=== PATIENT | female | born 1970 | race Caucasian/White ===

== ENCOUNTER 2017-05-30 09:59 | Emergency (ER) | payer MEDICAID ==
--- NOTE | ~2017-05-30 | ER ---
PATIENT'S NAME: JOY CR [facility] AGE: 47 Y [address] ROOM: [place] [address] LOCATION: [facility] ADMIT DATE: 05/30/2017 ER/Outpatient Report DISCHARGE DATE: 05/30/2017 FAMILY PHYSICIAN: Physician, Unknown ATTENDING PHYSICIAN: Francis Whitten TIME SEEN: 1010 hours. CHIEF COMPLAINT: Pruritic rash. HISTORY OF PRESENT ILLNESS: The patient is a 47-year-old female, states that she developed a rash started about 3 weeks ago, but has gotten worse the last few days. The patient describes her rash as quite pruritic especially at night. She has had no fever or chills. ALLERGIES: NONE. HOME MEDICATIONS: None. PAST MEDICAL HISTORY: No chronic diseases. SOCIAL HISTORY: Denies alcohol or tobacco use. REVIEW OF SYSTEMS: GENERAL: Health good. HEAD AND ENT: No recent sore throat. RESPIRATORY: Negative. CARDIOVASCULAR: Negative. SKIN: Includes pruritic rash mostly on her extremities; however, few on her trunk and left buttocks. PHYSICAL EXAMINATION: VITAL SIGNS: Blood pressure 138/63, temperature 98.8, respiratory rate 16, pulse 75, O2 saturations 95%. GENERAL APPEARANCE: Healthy appearing female. Alert and oriented. SKIN: Exam of her skin on the left ankle, there were isolated papules, some were slightly crusted. There was no drainage. She also had some on her trunk just laterally to her left breast. There were no open areas. PATIENT'S NAME: JOY CR [facility] AGE: 47 Y [address] ROOM: [place] [address] LOCATION: [facility] ADMIT DATE: 05/30/2017 ER/Outpatient Report DISCHARGE DATE: 05/30/2017 FAMILY PHYSICIAN: Physician, Unknown ATTENDING PHYSICIAN: Francis Whitten ASSESSMENT: Pruritic rash. PLAN: Due to her history of nocturnal itching. We decided to go ahead and treat her for scabies, Elimite cream 5% was ordered, she is to apply from her neck to down, wash it off at 8 to 14 hours. Recommend that she try a [id number] antihistamine and recommend follow up if things do not improve over a week's period. Handout was given. KALEB VERDUZCO FOR MD YSABEL LAUREN/emilie /[id number] d: 05/30/17 1620 t: 06/09/17 1058, OUTPATIENT REPORT
== END 2017-05-30 10:30 | disposition disaster alternative care site (69) ==
LOC: GMED 09:59
DX: R21 Rash and other nonspecific skin eruption (principal)